=== PATIENT | male | born 1935 | race Caucasian/White ===

== ENCOUNTER → 2018-04-19 | Day surgery (SDC) | payer MEDICARE, BC ==
[2018-04-14 14:07] VITALS: BMI 24.4
[~2018-04-19] MED LIST: ALPRAZolam 0.25 MG TAB PO PRN; ALPRAZolam 0.5 MG TAB PO PRN; ASPIRIN 325 MG TAB PO STA; ATORVASTATIN 80 MG TAB PO STA; HEPARIN SODIUM 1,000 UN/ML (10ML VL) IV ONE; HEPARIN SODIUM 1,000 UN/ML (10ML VL) ONE; IOPAMIDOL-370 100ML BTL INJ ONE; LIDOCAINE 1% INJ 10MG/ML (20 ML MDV) ONE; LIDOCAINE 1% INJ 10MG/ML (20 ML MDV) SQ ONE; MIDAZOLAM 2 MG/2 ML VIAL IVP ONE; NITROGLYCERIN SL TABS 0.4 MG TAB SUBLINGUAL PRN; SODIUM CHLORIDE 0.9% 1,000 ML IV SCH; SODIUM CHLORIDE 0.9% 1,000 ML in EMPTY BAG 1 BAG IV ONE; VERAPAMIL 2.5 MG/ML 2 ML AMP ONE; VERAPAMIL SYRINGE (5 MG/10 ML) INTRAARTER ONE
[2018-04-19 09:30] VITALS: RESP 18; TEMP 97.9
[2018-04-19 09:55] LABS: Anion Gap 12 mmol/L; Blood Urea Nitrogen 12 mg/dL (9-20); Calcium 9.6 mg/dL (8.4-10.2); Carbon Dioxide 23 mmol/L (22-30); Chloride 98 mmol/L (98-107); Glucose 109 mg/dL (74-99); Potassium 4.3 mmol/L (3.5-5.1); Sodium 133 mmol/L (137-145)
[2018-04-19 10:14] LABS: HCT 43.1 % (39.0-53.0); HGB 14.7 gm/dL (13.0-17.5); MCHC 34.2 g/dL (31.0-37.0); MCV 96.5 fL (80.0-100.0); Mean Platelet Volume 6.2; Platelet Count 187 k/uL (150-450); RBC 4.47 m/uL (4.30-5.90); RDW 13.7 % (11.5-15.5); WBC 5.6 k/uL (3.8-10.6)
[2018-04-19] MEDS: VERAPAMIL SYRINGE (5 MG/10 ML) INTRAARTER ONE ×2 (10:39→10:54)
[2018-04-19 11:45] LABS: Lymphocytes # (M) 0.78 k/uL (1.0-4.8); Monocytes # (M) 0.45 k/uL (0-1.0); Neutrophils # (M) 4.37 k/uL (1.3-7.7); Neutrophils % (M) 78 %; Nucleated Red Blood Cells 0 /100 WBC (0-0); Total Cells Counted 100
--- NOTE | 2018-04-19 11:56 | AN ---
ANGIOGRAPHY REPORT DATE OF SERVICE: 04/19/2018. PROCEDURE: Coronary angiography. PERFORMED BY: Dr. Carolina Crawley Moderate conscious sedation time was 27 minutes. Patient was administered Versed and oxygen saturation, hemodynamics and EKG were monitored closely. CLINICAL INFORMATION: Mr. Golden Bingham is an 82-year-old gentleman with a history of palpitations and near syncope. He has had event monitor which revealed runs of nonsustained ventricular tachycardia without associated symptoms. He was initiated on a beta helen and advised to come in for a cardiac catheterization and to rule out obstructive CAD. He also has underlying depression, hypertension, and also hyperlipidemia, all of which are under fairly decent control. PROCEDURE NOTE: Under local anesthesia and strict aseptic precautions, a 6-Maori introducer was placed in the right radial artery. Using a 4.0 right and a 3.5 left Luana catheters, I performed coronary angiography. There was a lot of tortuosity in the brachial system. Because of tortuosity, I had difficulty advancing the pigtail catheter into the LV. There was also some spasm. Therefore, I did not check LV pressures. The sheath was taken out and a TR band applied as per protocol with good hemostasis. Saturation of the fingers of the right hand was 94%. Patient tolerated procedure well without complications. . CORONARY ANGIOGRAPHY FINDINGS: 1. RIGHT CORONARY ARTERY: Right coronary artery is a nondominant vessel, has minor irregularities, gives off two acute marginal branches. No significant disease. Some calcification noted. 2. LEFT MAIN CORONARY ARTERY: Short patent disease-free vessel that bifurcates into LAD and circumflex. There is mild calcification. 3. LEFT ANTERIOR DESCENDING CORONARY ARTERY: Good caliber vessel, gives off a high diagonal branch, has minor irregularities, no significant disease in the diagonal other than 30%-35% irregularities. 4. LAD: LAD is a good caliber vessel, gives off a large septal, runs all the way to the apex and curves over the apex and gives off several septal branches. No significant disease in the entire LAD system. The diagonal is of a good caliber and distribution. 5. LEFT POSTERIOR CIRCUMFLEX CORONARY ARTERY: A dominant vessel, gives off 2 obtuse marginals and then runs distally. The post lateral branch has minor irregularities and no significant disease is noted in the circumflex system. 6. LEFT VENTRICULOGRAM: This was not performed. FINAL IMPRESSION: This patient has a left dominant system, no significant obstructive coronary artery disease. LV pressures were not checked and LV gram was not performed. RECOMMENDATIONS: No intervention from a coronary disease standpoint. I will check an echocardiogram to assess LV function and patient will be discharged today and he will continue beta helen, statins, and I will see him in the office on April 27. Findings were discussed with the patient and his and he will be discharged later on today if he remains stable. MMODL / IJN: [id number] /
[2018-04-19 17:28] VITALS: BP 132/64; PULSE 74
--- NOTE | 2018-04-20 10:14 | ECHOF ---
Referral Reason:ASSESS LV FUNCTION MEASUREMENTS -------- HEIGHT: 182.9 cm WEIGHT: 82.6 kg BP: 137/65 RVIDd: 2.9 cm (< 3.3) IVSd: 2.1 cm (0.6 - 1.1) LVIDd: 3.6 cm (3.9 - 5.3) LVPWd: 2.2 cm (0.6 - 1.1) IVSs: 2.2 cm LVIDs: 2.0 cm LVPWs: 2.5 cm LAESV Index (A-L): 20.88 ml/m Ao Diam: 4.0 cm (2.0 - 3.7) AV Cusp: 2.2 cm (1.5 - 2.6) LA Diam: 3.5 cm (2.7 - 3.8) EPSS: 0.3 cm MV E Rajeev: 0.59 m/s MV DecT: 433 ms MV A Rajeev: 0.87 m/s MV E/A Ratio: 0.69 AR PHT: 955 ms RAP: 5.00 mmHg RVSP: 27.30 mmHg MV EF SLOPE: 18.94 mm/s (70 - 150) MV EXCURSION: 1.67 cm (> 18.000) FINDINGS -------- Undetermined rhythm. This was a technically good study. The left ventricular size is normal. There is severe concentric left ventricular hypertrophy. Ove rall left ventricular systolic function is normal with, an EF between 55 - 60 %.r/o amyloidosis The right ventricle is normal in size and function. Normal LA size by volume 22+/-6 ml/m2. RA appears enlarged. Aortic valve is trileaflet and is mildly thickened. There is mild aortic regurgitation. There is no evidence of aortic stenosis. The mitral valve leaflets are mildly thickened. Mild mitral regurgitation is present. There is mo derate calcification of the posterior mitral valve leaflet with decreased mobility. Mild tricuspid regurgitation present. Right ventricular systolic pressure is normal at < 35 mmHg. There is no evidence of pulmonary hypertension. Moderate pulmonic regurgitation. The aortic root is mildy dilated up to 4.0 cm with normal ascending aortic size. Normal inferior vena cava with normal inspiratory collapse consistent with estimated right atrial pre ssure of 5 mmHg. There is no pericardial effusion. CONCLUSIONS -------- 1. Undetermined rhythm. 2. This was a technically good study. 3. The left ventricular size is normal. 4. There is severe concentric left ventricular hypertrophy. 5. Overall left ventricular systolic function is normal with, an EF between 55 - 60 %. 6. Normal LA size by volume 22+/-6 ml/m2. 7. RA appears enlarged. 8. Aortic valve is trileaflet and is mildly thickened. 9. There is mild aortic regurgitation. 10. The mitral valve leaflets are mildly thickened. 11. Mild mitral regurgitation is present. 12. There is moderate calcification of the posterior mitral valve leaflet with decreased mobility. 13. Mild tricuspid regurgitation present. 14. Right ventricular systolic pressure is normal at < 35 mmHg. 15. There is no evidence of pulmonary hypertension. 16. Moderate pulmonic regurgitation. 17. The aortic root is mildy dilated up to 4.0 cm with normal ascending aortic size. 18. There is no pericardial effusion. CUSTOM SHOE DESIGNER AND MAKER: Willian Patel RDCS
== END | disposition home or self-care (01) ==
LOC: CATHCVL 08:44
PROVIDERS: ATTEND Internal Medicine Interventional Cardiology
DX: I47.2 Ventricular tachycardia (principal); R07.89 Other chest pain; E78.00 Pure hypercholesterolemia, unspecified; I10 Essential (primary) hypertension; E78.5 Hyperlipidemia, unspecified; Z72.0 Tobacco use; Z79.899 Other long term (current) drug therapy; Z79.82 Long term (current) use of aspirin
CPT/HCPCS: 93454; 80048; 85025; C1769; C1894; J2250; J2001; J1644; Q9967; 93306

== ENCOUNTER → 2018-10-31 | Outpatient (CLI) | payer MEDICARE, BC | END | disposition home or self-care (01) | LOC: LABWHC1 13:25 | PROVIDERS: ATTEND Urology | DX: C61 Malignant neoplasm of prostate (principal) | CPT/HCPCS: 36415; 84153 ==

== ENCOUNTER 2022-09-22 12:44 | Inpatient (IN) | payer MEDICARE, BC ==
[2022-09-22] MEDS ORDERED: SODIUM CHLORIDE 0.9% 1,000 ML IV STA (12:56)
--- NOTE | 2022-09-22 13:01 | ED ---
General Adult HPI - General Chief complaint: Weakness Stated complaint: Fatigue Time Seen by Provider: 09/22/22 12:49 Source: patient, EMS, RN notes reviewed Mode of arrival: EMS Limitations: altered mental status - History of Present Illness Initial comments: Patient is a pleasant 87-year-old male presenting to the emergency department by EMS with nonspecific symptoms. Patient is a poor historian and provides very limited history. EMS was concerned for possible arrhythmia. Patient does have chronic back pain however denies being any worse at this time. There was some report patient being confused. Patient admits to feeling dry however states he has been drinking fluids and protein shakes. Patient denies isolated area of weakness. Patient is unclear why he is here. 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 ROS Other: All systems not noted in ROS Statement are negative. Constitutional: Denies: fever Eyes: Denies: eye pain ENT: Denies: ear pain Respiratory: Denies: cough, dyspnea Cardiovascular: Denies: chest pain Endocrine: Reports: fatigue Gastrointestinal: Denies: abdominal pain Genitourinary: Denies: dysuria Musculoskeletal: Reports: as per HPI Skin: Denies: rash Neurological: Reports: as per HPI. Denies: headache Past Medical History Past Medical History: Cancer, Hyperlipidemia Additional Past Medical History / Comment(s): bladder cancer History of Any Multi-Drug Resistant Organisms: None Reported Past Surgical History: Joint Replacement, Orthopedic Surgery, Prostate Surgery Additional Past Surgical History / Comment(s): lt hip replacement, rt shoulder surgery Past Anesthesia/Blood Transfusion Reactions: No Reported Reaction Past Psychological History: No Psychological Hx Reported Past Alcohol Use History: Occasional - Past Family History Mother Family Medical History: No Reported History General Exam Limitations: no limitations General appearance: in no apparent distress Head exam: Present: atraumatic, normocephalic Eye exam: Present: normal appearance, PERRL, EOMI ENT exam: Present: mucous membranes dry Neck exam: Present: normal inspection. Absent: tenderness, meningismus Respiratory exam: Present: normal lung sounds bilaterally Cardiovascular Exam: Present: irregular rhythm, normal heart sounds Expanded Peripheral pulses: 2+: Radial (R), Radial (L) GI/Abdominal exam: Present: soft. Absent: tenderness, pulsatile mass Extremities exam: Present: normal inspection, full ROM. Absent: tenderness Back exam: Present: normal inspection. Absent: tenderness Neurological exam: Present: alert, CN II-XII intact. Absent: motor sensory deficit Expanded Neurological exam: Present: protecting the airway Patient oriented to: Present: person, place. Absent: time Cranial nerves: EOM's Intact: Normal Motor strength exam: RUE: 5, LUE: 5, RLE: 5, LLE: 5 Eye Response: (4) open spontaneously Motor Response: (6) obeys commands Verbal Response: (4) confused conversation Psychiatric exam: Present: normal affect, normal mood Skin exam: Present: normal color Course Vital Signs 09/22/22 12:46 Temperature 98.9 F Pulse Rate 93 Respiratory 18 Rate Blood Pressure 130/76 O2 Sat by Pulse 97 Oximetry - Reevaluation(s) Reevaluation #1: 09/22/22 13:00 EKG #2 was also interpreted by myself shows atrial fibrillation with rate of 92. Left axis. Inferior Q wave. Septal Q waves. Right bundle branch block. Nonspecific ST-T. 09/22/22 13:08 Daughter present and helps provide further history. No history of atrial fibrillation. Patient has been having some right shoulder pain, not back pain. In addition patient has not been eating and drinking well. Patient has had some increased confusion for the past several weeks, not past few days. Patient did have a seizure a week ago and was at [facility] with low magnesium and dehydration as well. EKG Findings - EKG Results: EKG: interpreted by MACHOD ((X. Inferior Q waves. Right bundle branch block. Septal Q waves.), sinus rhythm, normal ST/T Medical Decision Making - Medical Decision Making Was pt. sent in by a medical professional or institution (, PA, SIDE PIECE COVERER, urgent care, hospital, or longterm...) When possible be specific @ -[No] Did you speak to anyone other than the patient for history (EMS, parent, family, police, friend...)? What history was obtained from this source @ -Daughter later arrives and helps provide history as patient is a poor historian. She states no history of atrial fibrillation. She also adds that patient was at [facility] a week ago with new onset seizure and dehydration and hypomagnesemia Did you review nursing and triage notes (agree or disagree)? Why? @ -[I reviewed and agree with nursing and triage notes] Were old charts reviewed (outside hosp., previous admission, EMS record, old EKG, old radiological studies, urgent care reports/EKG's, longterm records)? Report findings @ -[No old charts were reviewed] Differential Diagnosis (chest pain, altered mental status, abdominal pain women, abdominal pain men, vaginal bleeding, weakness, fever, dyspnea, syncope, headache, dizziness, GI bleed, back pain, seizure, CVA, palpatations, mental health)? @ -Differential Weakness: Hypoglycemia, shock, sepsis, hyponatremia, anemia, infection, CA, ETOH, adverse medicine reaction, overdose, stroke, this is not meant to be an all-inclusive list. EKG interpreted by me (3pts min.). @ -[As above] X-rays interpreted by me (1pt min.). @ -Chest x-ray shoulder x-ray revealed no acute abnormality CT interpreted by me (1pt min.). @ -Report reviewed U/S interpreted by me (1pt. min.). @ -[None done] What testing was considered but not performed or refused? (CT, X-rays, U/S, labs)? Why? @ -[None] What meds were considered but not given or refused? Why? @ -[None] Did you discuss the management of the patient with other professionals (professionals i.e. , PA, SIDE PIECE COVERER, lab, RT, psych nurse, social media content manager, backup administrative coordinator, teacher, corrections officer, comp field case manager)? Give summary @ -His was discussed with Dr. Stevens, who will admit For hospital call. Was smoking cessation discussed for >3mins.? @ -[No] Was critical care preformed (if so, how long)? @ -[No] Were there social determinants of health that impacted care today? How? (Homelessness, low income, unemployed, alcoholism, drug addiction, transportation, low edu. Level, literacy, decrease access to med. care, penitentiary, rehab)? @ -[No] Was there de-escalation of care discussed even if they declined (Discuss DNR or withdrawal of care, Hospice)? DNR status @ -[No] What co-morbidities impacted this encounter? (DM, HTN, Smoking, COPD, CAD, Cancer, CVA, ARF, Chemo, Hep., AIDS, mental health diagnosis, sleep apnea, morbid obesity)? @ -[None] Was patient admitted / discharged? Hospital course, mention meds given and route, prescriptions, significant lab abnormalities, going to OR and other pertinent info. @ -Patient reevaluated and resting comfortably in bed. Patient and family updated. Patient will need admitted with further cardiac evaluation. Patient will also need social work for possible placement versus home care Undiagnosed new problem with uncertain prognosis? @ -[No] Drug Therapy requiring intensive monitoring for toxicity (Heparin, Nitro, Insulin, Cardizem)? @ -[No] Were any procedures done? @ -[No] Diagnosis/symptom? @ -New-onset A. fib, dehydration Acute, or Chronic, or Acute on Chronic? @ -Acute, acute Uncomplicated (without systemic symptoms) or Complicated (systemic symptoms)? @ -[default] Side effects of treatment? @ -[No] Exacerbation, Progression, or Severe Exacerbation? @ -[No] Poses a threat to life or bodily function? How? (Chest pain, USA, CA, pneumonia, PE, COPD, DKA, ARF, appy, cholecystitis, CVA, Diverticulitis, Homicidal, Suicidal, threat to staff... and all critical care pts) @ -[No] - Lab Data Result diagrams: 09/22/22 13:03 09/22/22 14:20 Lab Results 09/22/22 09/22/22 09/22/22 Range/Units 13:03 14:20 14:20 WBC 11.3 H (3.8-10.6) k/uL RBC 4.32 (4.30-5.90) m/uL Hgb 13.8 (13.0-17.5) gm/dL Hct 41.1 (39.0-53.0) % MCV 95.2 (80.0-100.0) fL MCH 31.8 (25.0-35.0) pg MCHC 33.4 (31.0-37.0) g/dL RDW 14.0 (11.5-15.5) % Plt Count 319 (150-450) k/uL MPV 7.5 Neutrophils % 83 % Lymphocytes % 8 % Monocytes % 6 % Eosinophils % 1 % Basophils % 0 % Neutrophils # 9.4 H (1.3-7.7) k/uL Lymphocytes # 0.9 L (1.0-4.8) k/uL Monocytes # 0.7 (0-1.0) k/uL Eosinophils # 0.1 (0-0.7) k/uL Basophils # 0.0 (0-0.2) k/uL PT 11.4 (9.0-12.0) sec INR 1.1 (<1.2) APTT 25.5 (22.0-30.0) sec Sodium (137-145) mmol/L Potassium (3.5-5.1) mmol/L Chloride (98-107) mmol/L Carbon Dioxide (22-30) mmol/L Anion Gap mmol/L BUN (9-20) mg/dL Creatinine (0.66-1.25) mg/dL Est GFR (CKD-EPI)AfAm (>60 ml/min/1.73 sqM) Est GFR (CKD-EPI)NonAf (>60 ml/min/1.73 sqM) Glucose (74-99) mg/dL Plasma Lactic Acid Faizan 2.2 H* (0.7-2.0) mmol/L Calcium (8.4-10.2) mg/dL Phosphorus (2.5-4.5) mg/dL Magnesium (1.6-2.3) mg/dL Total Bilirubin (0.2-1.3) mg/dL AST (17-59) U/L ALT (4-49) U/L Alkaline Phosphatase (38-126) U/L Troponin I (0.000-0.034) ng/mL Total Protein (6.3-8.2) g/dL Albumin (3.5-5.0) g/dL TSH (0.465-4.680) mIU/L Free T4 (0.78-2.19) ng/dL Free T3 pg/mL (2.8-5.3) pg/ml 09/22/22 09/22/22 Range/Units 14:20 14:20 WBC (3.8-10.6) k/uL RBC (4.30-5.90) m/uL Hgb (13.0-17.5) gm/dL Hct (39.0-53.0) % MCV (80.0-100.0) fL MCH (25.0-35.0) pg MCHC (31.0-37.0) g/dL RDW (11.5-15.5) % Plt Count (150-450) k/uL MPV Neutrophils % % Lymphocytes % % Monocytes % % Eosinophils % % Basophils % % Neutrophils # (1.3-7.7) k/uL Lymphocytes # (1.0-4.8) k/uL Monocytes # (0-1.0) k/uL Eosinophils # (0-0.7) k/uL Basophils # (0-0.2) k/uL PT (9.0-12.0) sec INR (<1.2) APTT (22.0-30.0) sec Sodium 133 L (137-145) mmol/L Potassium 4.1 (3.5-5.1) mmol/L Chloride 98 (98-107) mmol/L Carbon Dioxide 22 (22-30) mmol/L Anion Gap 13 mmol/L BUN 23 H (9-20) mg/dL Creatinine 0.67 (0.66-1.25) mg/dL Est GFR (CKD-EPI)AfAm >90 (>60 ml/min/1.73 sqM) Est GFR (CKD-EPI)NonAf 88 (>60 ml/min/1.73 sqM) Glucose 118 H (74-99) mg/dL Plasma Lactic Acid Faizan (0.7-2.0) mmol/L Calcium 9.8 (8.4-10.2) mg/dL Phosphorus 3.8 (2.5-4.5) mg/dL Magnesium 2.1 (1.6-2.3) mg/dL Total Bilirubin 0.8 (0.2-1.3) mg/dL AST 27 (17-59) U/L ALT 15 (4-49) U/L Alkaline Phosphatase 110 (38-126) U/L Troponin I 0.061 H* (0.000-0.034) ng/mL Total Protein 7.1 (6.3-8.2) g/dL Albumin 3.7 (3.5-5.0) g/dL TSH 3.070 (0.465-4.680) mIU/L Free T4 2.37 H (0.78-2.19) ng/dL Free T3 pg/mL 4.1 (2.8-5.3) pg/ml Disposition Clinical Impression: New onset a-fib, Dehydration Disposition: ADMITTED IP TO THIS HOSP Is patient prescribed a controlled substance at d/c from ED?: No Referrals: None,Stated [Primary Care Provider] - 1-2 days Time of Disposition: 16:06
[2022-09-22 13:12] LABS: Basophils % (A) 0 %; Eosinophils # (A) 0.1 k/uL (0-0.7); Eosinophils % (A) 1 %; HCT 41.1 % (39.0-53.0); HGB 13.8 gm/dL (13.0-17.5); Lymphocytes # (A) 0.9 k/uL (1.0-4.8); Lymphocytes % (A) 8 %; MCH 31.8 pg (25.0-35.0); MCHC 33.4 g/dL (31.0-37.0); MCV 95.2 fL (80.0-100.0); Mean Platelet Volume 7.5; Monocytes # (A) 0.7 k/uL (0-1.0); Monocytes % (A) 6 %; Neutrophils # (A) 9.4 k/uL (1.3-7.7); Neutrophils % (A) 83 %; Platelet Count 319 k/uL (150-450); RBC 4.32 m/uL (4.30-5.90); WBC 11.3 k/uL (3.8-10.6)
--- NOTE | 2022-09-22 13:40 | CT ---
EXAMINATION TYPE: CT brain wo con CT DLP: 1202.4 mGycm, Automated exposure control for dose reduction was used. DATE OF EXAM: 09/22/2022 1:28 PM COMPARISON: None. CLINICAL INDICATION:Male, 87 years old with history of ams, AMS, Dementia, Seizure? TECHNIQUE: Brain: Axial CT images of the brain were obtained with coronal and sagittal reformats created and rev iewed. Contrast used: None. Oral contrast used: None. FINDINGS: Brain: Extra-axial spaces: No abnormal extra-axial fluid collections. Ventricular system: Dilatation in proportion to cerebral atrophy. Cerebral parenchyma: Cerebral atrophy. No acute intraparenchymal hemorrhage or mass effect. The khalil -white junction is well differentiated. Scattered hypoattenuating areas are seen within the white mat ter. Cerebellum: Cerebellar atrophy Mass effect: No evidence of midline shift. Intracranial vasculature: Atherosclerotic calcifications of the intracranial vessels. Soft tissues: Normal. Calvarium/osseous structures: No depressed skull fracture. Paranasal sinuses and mastoid air cells: Mild scattered paranasal sinus disease. Visualized orbits: Bilateral aphakia IMPRESSION: 1. No acute intracranial process. 2. Nonspecific white matter changes, likely secondary to chronic small vessel ischemic disease.
--- NOTE | 2022-09-22 14:27 | XR ---
EXAMINATION TYPE: XR chest 2V DATE OF EXAM: 09/22/2022 1:40 PM COMPARISON: none TECHNIQUE: XR chest 2V Frontal and lateral views of the chest. CLINICAL INDICATION:Male, 87 years old with history of Weakness; FINDINGS: Lungs/Pleura: There is flattening of the diaphragm with increased lucency of the lungs. No evidence o f pneumothorax, pleural effusion or focal consolidation. Pulmonary vascularity: Pulmonary vascular congestion. Heart/mediastinum: Cardiomediastinal silhouette is prominent in size. Musculoskeletal: No acute osseous pathology. Post rotator cuff repair changes to the right shoulder. Other findings: None IMPRESSION: 1. Mild pulmonary vascular congestion suggested correlate with serum BNP. 2. COPD changes.
--- NOTE | 2022-09-22 14:28 | XR ---
EXAMINATION TYPE: XR shoulder complete RT DATE OF EXAM: 09/22/2022 1:40 PM INDICATION: Patient age:Male; 87 years old; Reason for study: pain; COMPARISON: None TECHNIQUE: The right shoulder was examined in AP, internally rotated and scapular Y projections. FINDINGS: Post rotator cuff repair changes with anchors in place. There is degeneration changes with osteophyte formation of the glenoid humerus acromion and distal clavicle. No evidence of acute osseous pathology, joint dislocation, or soft tissue swelling. There are interst itial lung opacities suggested. IMPRESSION: No acute osseous pathology. Post rotator cuff repair changes with moderate to severe degeneration of the acromioclavicular and gl enohumeral joint.
[2022-09-22 14:45] LABS: INR 1.1 (<1.2); Partial Thromboplastin Time 25.5 sec (22.0-30.0); Prothrombin Time 11.4 sec (9.0-12.0)
[2022-09-22 14:46] LABS: ALT 15 U/L (4-49); AST 27 U/L (17-59); African American GFR (CKD) >90 (>60 ml/min/1.73 sqM); Albumin 3.7 g/dL (3.5-5.0); Alkaline Phosphatase 110 U/L (38-126); Anion Gap 13 mmol/L; Blood Urea Nitrogen 23 mg/dL (9-20); Calcium 9.8 mg/dL (8.4-10.2); Carbon Dioxide 22 mmol/L (22-30); Chloride 98 mmol/L (98-107); Glucose 118 mg/dL (74-99); Magnesium 2.1 mg/dL (1.6-2.3); Non-African American GFR(CKD) 88 (>60 ml/min/1.73 sqM); Phosphorus 3.8 mg/dL (2.5-4.5); Potassium 4.1 mmol/L (3.5-5.1); Sodium 133 mmol/L (137-145); Total Bilirubin 0.8 mg/dL (0.2-1.3); Total Protein 7.1 g/dL (6.3-8.2)
[2022-09-22 15:01] LABS: T4, Free (Free Thyroxine) 2.37 ng/dL (0.78-2.19)
[2022-09-22] MEDS ORDERED: NALOXONE 0.4 MG/ML 1 ML VIAL IV PRN (16:07)
[2022-09-22] MEDS: SODIUM CHLORIDE 0.9% 1,000 ML IV SCH (16:35)
--- NOTE | 2022-09-22 18:47 | P.HPIM ---
History of Present Illness H&P Date: 09/22/22 Patient is a 87-year-old male with PMH of hypertension, depression, dementia, cardiac amyloidosis, hypothyroidism presents to the ED for seizure-like activity. History is obtained from the daughter at bedside was not present during this episode. Apparently, patient was using the washroom with the aid of his workers' compensation magistrate when he started staring off into space and started shaking his extremities. Unclear whether he had bladder or bowel incontinence. Apparently, he had a similar episode one week ago and was taken to [facility]. He was treated for dehydration and hypomagnesemia. Family was told he did not have a seizure at that time and he was discharged home. Daughter reports that patient has deteriorated over the past 2 months. She estimates that he has lost 10 pounds in the last 6 weeks. Patient has very poor oral intake. With what little intake he does have, usually results in coughing. Daughter also reports that he also seems to have pain in his right shoulder. Family has 24-hour caregiver for their mother and father. He has not been able to ambulate over the past 1-2 weeks. In the ED, he was noted to be tachycardic with heart rate in the 90s. Vital signs were otherwise stable. CBC showed leukocytosis of 11.3. Coagulation panel within normal limits. CMP showed sodium of 133, BUN of 23, glucose 118. Troponin was 0.061. Lactic acid of 2.2. TSH within normal limits and free T4 elevated at 2.37. EKG showed atrial fibrillation with PVCs, ventricular rate of 92. Brain CT negative for acute finding. Chest x-ray showing mild pulmonary vascular congestion. 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 Patient is admitted for failure to thrive. Pertinent positives and negatives as discussed in HPI, a complete review of systems was performed and all other systems are negative. General: non toxic, no distress, appears at stated age, cachectic Derm: warm, dry Head: atraumatic, normocephalic, symmetric Eyes: EOMI, no lid lag, anicteric sclera Mouth: no lip lesion, mucus membranes moist Cardiovascular: Irregular, no murmur Lungs: CTA bilateral, no rhonchi, no rales , no accessory muscle use Abdominal: soft, nontender to palpation, no guarding, no appreciable organomegaly Ext: no gross muscle atrophy, no edema, no contractures Neuro: no focal neuro deficits Psych: Alert, oriented x 0 Troponin elevation Hyponatremia and elevated BUN likely related to dehydration Lactic acidosis likely related to the above. New-onset atrial fibrillation Failure to thrive Chronic conditions: Hypertension, depression, dementia, cardiac amyloidosis, hypothyroidism Based on my assessment of this patient, this patient meets a high complexity level of care. Patient has an acute diagnosis of failure to thrive that poses a threat to life or bodily function. He has lost about 10 pounds in the last week as per donavon perkins. Noted to have elevated troponin of 0.061 and lactic acid of 2.2. Family notes very poor oral intake. Questionable episode of seizure. Potassium and magnesium within normal limits. EEG will be ordered. Speech therapy will be consulted for swallow evaluation. PT and OT will be consulted to work with this patient. Troponins will be trended and ACS will be ruled out. Echocardiogram will be ordered. Telemetry monitoring ordered. Cardiology will be consulted. Continue normal saline at 75 mL per hour. Repeat lactic acid until negative. Hypertension: Metoprolol 12.5 mg PO QD. Depression: Wellbutrin 150 mg PO QD. Dementia: Memantine 5 mg PO BID. Cardiac amyloidosis: Follows up with Dr. Crawley. Hypothyroidism: Synthroid 25 mcg PO QD. CODE STATUS as discussed with the daughter. She states that she needs to speak with her sister who is the POA. Also discussed the possible need for PEG if patient does not improve. Lovenox for DVT Prophylaxis. Daughter is POA. FULL CODE. I have reviewed the following human resources consultant notes: I have reviewed the results of the following tests: CBC showed leukocytosis of 11.3. Coagulation panel within normal limits. CMP showed sodium of 133, BUN of 23, glucose 118. Troponin was 0.061. Lactic acid of 2.2. TSH within normal limits and free T4 elevated at 2.37. Brain CT negative for acute finding. 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 I have ordered the following tests: Troponin. Echocardiogram. EEG. I have discussed the care of this patient with the following independent historian: Discussed with the Daughter at bedside. I have independently interpreted the following test below: EKG showed atrial fibrillation with PVCs, ventricular rate of 92. Chest x-ray showing mild pulmonary vascular congestion. I have discussed the management of this patient with the following physician: Case discussed with the ED physician with decision made to admit the patient for dehydration and elevated troponin with failure to thrive. Past Medical History Past Medical History: Cancer, Hyperlipidemia Additional Past Medical History / Comment(s): bladder cancer History of Any Multi-Drug Resistant Organisms: None Reported Past Surgical History: Joint Replacement, Orthopedic Surgery, Prostate Surgery Additional Past Surgical History / Comment(s): lt hip replacement, rt shoulder surgery Past Anesthesia/Blood Transfusion Reactions: No Reported Reaction Past Psychological History: No Psychological Hx Reported Past Alcohol Use History: Occasional - Past Family History Mother Family Medical History: No Reported History Medications and Allergies Home Medications Medication Instructions Recorded Confirmed Type Aspirin [Adult Low Dose Aspirin EC] 81 mg PO DAILY 04/14/18 09/22/22 History Omeprazole 20 mg PO AC-BRKFST 04/14/18 09/22/22 History Sertraline HCl [Zoloft] 50 mg PO DAILY 04/14/18 09/22/22 History buPROPion HCL [Wellbutrin XL] 150 mg PO DAILY 04/14/18 09/22/22 History Levothyroxine Sodium [Synthroid] 25 mcg PO DAILY 09/22/22 09/22/22 History Memantine HCl [Memantine HCl ER] 14 mg PO DAILY 09/22/22 09/22/22 History Metoprolol Tartrate [Lopressor] 12.5 mg PO DAILY 09/22/22 09/22/22 History Polymyxin B-Trimeth Sulf Ophth 1 drop BOTH EYES DIRECTED 09/22/22 09/22/22 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 Meglumine [Vyndaqel] 80 mg PO DAILY 09/22/22 09/22/22 History Allergies Allergy/AdvReac Type Severity Reaction Status Date / Time No Known Allergies Allergy Verified 09/22/22 14:16 Physical Exam Vitals: Vital Signs Temp Pulse Resp BP Pulse Ox 09/22/22 12:46 98.9 F 93 18 130/76 97 Intake and Output 09/22/22 09/22/22 09/22/22 06:59 14:59 22:59 Other: Weight 81.647 kg Results CBC & Chem 7: 09/22/22 13:03 09/22/22 14:20 Labs: Abnormal Lab Results - Last 24 Hours (Table) 09/22/22 09/22/22 09/22/22 Range/Units 13:03 14:20 14:20 WBC 11.3 H (3.8-10.6) k/uL Neutrophils # 9.4 H (1.3-7.7) k/uL Lymphocytes # 0.9 L (1.0-4.8) k/uL Sodium (137-145) mmol/L BUN (9-20) mg/dL Glucose (74-99) mg/dL Plasma Lactic Acid Faizan 2.2 H* (0.7-2.0) mmol/L Troponin I 0.061 H* (0.000-0.034) ng/mL Free T4 (0.78-2.19) ng/dL 09/22/22 09/22/22 Range/Units 14:20 17:36 WBC (3.8-10.6) k/uL Neutrophils # (1.3-7.7) k/uL Lymphocytes # (1.0-4.8) k/uL Sodium 133 L (137-145) mmol/L BUN 23 H (9-20) mg/dL Glucose 118 H (74-99) mg/dL Plasma Lactic Acid Faizan (0.7-2.0) mmol/L Troponin I 0.066 H* (0.000-0.034) ng/mL Free T4 2.37 H (0.78-2.19) ng/dL
[2022-09-22 19:06] LABS: Appearance,Urine Clear (Clear); Bilirubin,Urine Negative (Negative); Blood,Urine Negative (Negative); Color,Urine Yellow; Glucose,Urine (UA) Negative (Negative); Ketones,Urine Trace (Negative); Leukocyte Esterase,Urine Negative (Negative); Nitrite,Urine Negative (Negative); PH, Urine 5.5 (5.0-8.0); Protein,Urine Trace (Negative); Specific Gravity,Urine 1.024 (1.001-1.035)
[2022-09-22] MEDS ORDERED: ACETAMINOPHEN TAB 500 MG TAB PO STA (20:58)
[2022-09-23] MEDS: SODIUM CHLORIDE 0.9% 1,000 ML IV SCH ×2 (06:38→19:55)
[2022-09-23 07:58] LABS: Basophils % (A) 0 %; Eosinophils # (A) 0.1 k/uL (0-0.7); Eosinophils % (A) 1 %; HCT 35.5 % (39.0-53.0); HGB 11.8 gm/dL (13.0-17.5); Lymphocytes # (A) 1.4 k/uL (1.0-4.8); Lymphocytes % (A) 13 %; MCH 31.3 pg (25.0-35.0); MCHC 33.4 g/dL (31.0-37.0); MCV 93.9 fL (80.0-100.0); Mean Platelet Volume 7.5; Monocytes # (A) 0.7 k/uL (0-1.0); Monocytes % (A) 6 %; Neutrophils # (A) 8.2 k/uL (1.3-7.7); Neutrophils % (A) 77 %; Platelet Count 299 k/uL (150-450); RBC 3.78 m/uL (4.30-5.90); RDW 14.2 % (11.5-15.5); WBC 10.6 k/uL (3.8-10.6)
[2022-09-23 08:05] LABS: ALT 13 U/L (4-49); AST 22 U/L (17-59); African American GFR (CKD) >90 (>60 ml/min/1.73 sqM); Albumin 3.1 g/dL (3.5-5.0); Alkaline Phosphatase 89 U/L (38-126); Anion Gap 11 mmol/L; Blood Urea Nitrogen 25 mg/dL (9-20); Calcium 9.1 mg/dL (8.4-10.2); Carbon Dioxide 22 mmol/L (22-30); Chloride 101 mmol/L (98-107); Glucose 81 mg/dL (74-99); Non-African American GFR(CKD) 89 (>60 ml/min/1.73 sqM); Potassium 3.9 mmol/L (3.5-5.1); Sodium 134 mmol/L (137-145); Total Bilirubin 0.7 mg/dL (0.2-1.3)
--- NOTE | 2022-09-23 11:58 | CA ---
Transthoracic Echo Report Name: Golden Bingham Age: 87 Gender: M : 1935 Exam Date: 09/23/2022 09:55 Exam Location: [place] [facility] Ht (in): 72 Wt (lb): 180 Ordering Physician: Jaime Perrin MD Attending/Referring Phys: Vp Training Abel Jolley Procedure CPT: Indications: Cardiac amyloidosis Cardiac Hx: Technical Quality: Good Contrast 1: Total Dose (mL): Contrast 2: Total Dose (mL): MEASUREMENTS (Male / Female) Normal Values 2D ECHO LV Diastolic Diameter PLAX 2.7 cm 4.2 - 5.9 / 3.9 - 5.3 cm LV Systolic Diameter PLAX 2.0 cm IVS Diastolic Thickness 2.3 cm 0.6 - 1.0 / 0.6 - 0.9 cm LVPW Diastolic Thickness 2.5 cm 0.6 - 1.0 / 0.6 - 0.9 cm LV Relative Wall Thickness 1.8 RV Internal Dim ED PLAX 2.8 cm LVOT Diameter 2.5 cm Aortic Root Diameter 3.5 cm LA Systolic Diameter LX 3.0 cm 3.0 - 4.0 / 2.7 - 3.8 cm LV Diastolic Volume MOD BP 34.7 cm??? 67 - 155 / 56 - 104 cm??? LV Systolic Volume MOD BP 9.2 cm??? 22 - 58 / 19 - 49 cm??? LV Ejection Fraction MOD BP 73.5 % >= 55 % LV Diastolic Volume MOD 4C 43.5 cm??? LV Systolic Volume MOD 4C 8.2 cm??? LV Ejection Fraction MOD 4C 81.1 % LV Diastolic Length 4C 7.1 cm LV Systolic Length 4C 5.8 cm LV Diastolic Volume MOD 2C 29.9 cm??? LV Systolic Volume MOD 2C 10.6 cm??? LV Ejection Fraction MOD 2C 64.7 % LV Diastolic Length 2C 6.7 cm LV Systolic Length 2C 5.5 cm LA Volume 51.5 cm??? 18 - 58 / 22 - 52 cm??? DOPPLER AV Peak Velocity 139.8 cm/s AV Peak Gradient 7.8 mmHg AI Peak Velocity 363.6 cm/s AI Peak Gradient 52.9 mmHg AI Pressure Half Time 985.7 ms MV Peak Velocity 152.2 cm/s MV Peak Gradient 9.3 mmHg MV Mean Velocity 82.8 cm/s MV Mean Gradient 3.3 mmHg MV Velocity Time Integral 40.1 cm Mitral E Point Velocity 62.7 cm/s Mitral A Point Velocity 103.6 cm/s Mitral E to A Ratio 0.6 MV Deceleration Time 265.7 ms TR Peak Velocity 177.8 cm/s TR Peak Gradient 12.6 mmHg PV Peak Velocity 210.5 cm/s PV Peak Gradient 17.7 mmHg FINDINGS Left Ventricle Severe concentric left ventricular hypertrophy. Right Ventricle Normal right ventricular size. Right Atrium Normal right atrial size. Left Atrium Normal left atrial size. Mitral Valve Mitral Thickening. Trace MR. Aortic Valve Mild to Moderate AV sclerosis/calcification. Moderate AI. Tricuspid Valve Mild Thickening of the Tricuspid valve. Trace TR. Pulmonic Valve Pulmonic valve not well visualized. [id number] pulmonic regurgitation. Pericardium Normal pericardium. Aorta Grossly normal Ao root power. CONCLUSIONS Severe concentric LVH with shiny speckled appearance of myocardium suggestive of cardiac emboli doses. Mild mitral and aortic insufficiency. Right-sided pressures are not well quantified no pericardial effusion Previewed by: Dr. Benja Crawley MD (Electronically Signed) Final Date: 23 Sep 2022 11:57
[2022-09-23 12:24] VITALS: BMI 24.4
[2022-09-23] MEDS: LEVOTHYROXINE 25 MCG TAB PO SCH (13:32)
[2022-09-23] MEDS: PANTOPRAZOLE 40 MG TABLET PO SCH (13:32)
[2022-09-23] MEDS: ASPIRIN 81 MG PO SCH (13:32)
[2022-09-23] MEDS: buPROPion XL 150 MG TAB.ER.24H PO SCH (13:33)
[2022-09-23] MEDS: MEMANTINE 5 MG TAB PO SCH ×2 (13:33→20:00)
[2022-09-23] MEDS: SERTRALINE 50 MG TAB PO SCH (13:33)
--- NOTE | 2022-09-23 17:07 | P.PN ---
Subjective Progress Note Date: 09/23/22 Patient is a 87-year-old male with PMH of hypertension, depression, dementia, cardiac amyloidosis, hypothyroidism presents to the ED for seizure-like activity. History is obtained from the daughter at bedside was not present during this episode. Apparently, patient was using the washroom with the aid of his publications designer when he started staring off into space and started shaking his extremities. Unclear whether he had bladder or bowel incontinence. Apparently, he had a similar episode one week ago and was taken to [facility]. He was treated for dehydration and hypomagnesemia. Family was told he did not have a seizure at that time and he was discharged home. Daughter reports that patient has deteriorated over the past 2 months. She estimates that he has lost 10 pounds in the last 6 weeks. Patient has very poor oral intake. With what little intake he does have, usually results in coughing. Daughter also reports that he also seems to have pain in his right shoulder. Family has 24-hour caregiver for their mother and father. He has not been able to ambulate over the past 1-2 weeks. In the ED, he was noted to be tachycardic with heart rate in the 90s. Vital signs were otherwise stable. CBC showed leukocytosis of 11.3. Coagulation panel within normal limits. CMP showed sodium of 133, BUN of 23, glucose 118. Troponin was 0.061. Lactic acid of 2.2. TSH within normal limits and free T4 elevated at 2.37. Further review of EKG showed sinus rhythm with frequent ectopic beats. Brain CT negative for acute finding. Chest x-ray showing mild pulmonary vascular congestion. 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 Patient is admitted for failure to thrive. 09/23 Patient was seen and examined. No changes in his clinical condition. Echocardiogram shows severe concentric LVH with speckled appearance. No family at bedside. CBC shows hemoglobin of 11.8. BMP shows sodium 134, BUN of 25, creatinine 0.64 with albumin of 3.1. UA negative for nitrite of LE. Per nursing, family interested in Hospice informational visit. General: non toxic, no distress, appears at stated age, cachectic Derm: warm, dry Head: atraumatic, normocephalic, symmetric Eyes: EOMI, no lid lag, anicteric sclera Mouth: no lip lesion, mucus membranes moist Cardiovascular: Irregular, no murmur Lungs: CTA bilateral, no rhonchi, no rales , no accessory muscle use Ext: no gross muscle atrophy, no edema, no contractures Neuro: no focal neuro deficits Psych: Alert, oriented x 0 Troponin elevation Hyponatremia and elevated BUN likely related to dehydration Failure to thrive Resolved: Lactic acidosis Chronic conditions: Severe diastolic CHF, Hypertension, depression, dementia, cardiac amyloidosis, hypothyroidism Based on my assessment of this patient, this patient meets a moderate complexity level of care. Patient has an acute diagnosis of failure to thrive that poses a threat to life or bodily function. He has lost about 10 pounds in the last week as per daughter. Noted to have elevated troponin of 0.061 and lactic acid of 2.2. Family notes very poor oral intake. Questionable episode of seizure. Potassium and magnesium within normal limits. EEG is pending. Speech therapy recommends NDD2 with 1:1 supervision. PT and OT on board. Troponins are flat. Likely troponin leak. Patient has severe diasolic CHF. Telemetry monitoring ordered. Continue normal saline at 75 mL per hour. Hypertension: Metoprolol 12.5 mg PO QD. Depression: Wellbutrin 150 mg PO QD. Dementia: Memantine 5 mg PO BID. Cardiac amyloidosis: Follows up with Dr. Crawley. Hypothyroidism: Synthroid 25 mcg PO QD. Lovenox for DVT Prophylaxis. Daughter is POA. FULL CODE. I have reviewed the following database consultant notes: I have reviewed the results of the following tests: Echocardiogram shows severe concentric LVH with speckled appearance. CBC shows hemoglobin of 11.8. BMP shows sodium 134, BUN of 25, creatinine 0.64 with albumin of 3.1. UA negative for nitrite of LE. I have ordered the following tests: EEG. I have discussed the care of this patient with the following independent historian: Case discussed with the daughter. The other daughter who is the POA will come around 6PM. I have independently interpreted the following test below: I have discussed the management of this patient with the following physician: Objective - Vital Signs Vital signs: Vital Signs Temp 97.7 F 09/23/22 08:37 Pulse 97 09/23/22 08:37 Resp 18 09/23/22 08:37 BP 157/74 09/23/22 08:37 Pulse Ox 96 09/23/22 08:37 FiO2 Intake & Output 09/22/22 09/23/22 09/23/22 18:59 06:59 18:59 Intake Total 600 Balance 600 Weight 81.647 kg 81.647 kg Intake: Intake, IV Titration 600 Amount Sodium Chloride 0.9% 1, 600 000 ml @ 75 mls/hr IV . [id number] [facility] Rx#:[id number] Other: Voiding Method Incontinent Incontinent # Voids 1 # Bowel Movements 1 - Labs CBC & Chem 7: 09/23/22 06:27 09/23/22 06:27 Labs: Abnormal Lab Results - Last 24 Hours (Table) 09/22/22 09/22/22 09/22/22 Range/Units 14:20 14:20 15:57 RBC (4.30-5.90) m/uL Hgb (13.0-17.5) gm/dL Hct (39.0-53.0) % Neutrophils # (1.3-7.7) k/uL Sodium (137-145) mmol/L BUN (9-20) mg/dL Creatinine (0.66-1.25) mg/dL Troponin I 0.061 H* (0.000-0.034) ng/mL Total Protein (6.3-8.2) g/dL Albumin (3.5-5.0) g/dL Free T4 2.37 H (0.78-2.19) ng/dL Urine Protein Trace H (Negative) Urine Ketones Trace H (Negative) 09/22/22 09/22/22 09/23/22 Range/Units 17:36 21:54 06:27 RBC 3.78 L (4.30-5.90) m/uL Hgb 11.8 L (13.0-17.5) gm/dL Hct 35.5 L (39.0-53.0) % Neutrophils # 8.2 H (1.3-7.7) k/uL Sodium (137-145) mmol/L BUN (9-20) mg/dL Creatinine (0.66-1.25) mg/dL Troponin I 0.066 H* 0.088 H* (0.000-0.034) ng/mL Total Protein (6.3-8.2) g/dL Albumin (3.5-5.0) g/dL Free T4 (0.78-2.19) ng/dL Urine Protein (Negative) Urine Ketones (Negative) 09/23/22 Range/Units 06:27 RBC (4.30-5.90) m/uL Hgb (13.0-17.5) gm/dL Hct (39.0-53.0) % Neutrophils # (1.3-7.7) k/uL Sodium 134 L (137-145) mmol/L BUN 25 H (9-20) mg/dL Creatinine 0.64 L (0.66-1.25) mg/dL Troponin I (0.000-0.034) ng/mL Total Protein 6.0 L (6.3-8.2) g/dL Albumin 3.1 L (3.5-5.0) g/dL Free T4 (0.78-2.19) ng/dL Urine Protein (Negative) Urine Ketones (Negative)
[2022-09-23] MEDS: ENOXAPARIN 40 MG/0.4 ML SYRINGE SQ SCH (18:49)
[2022-09-23] MEDS: METOPROLOL TARTRATE 12.5 MG TAB PO SCH (18:49)
--- NOTE | 2022-09-23 19:23 | EEG ---
ELECTROENCEPHALOGRAM REPORT CLINICAL HISTORY: This is an 87-year-old gentleman with history of dementia, who had reported staring episode and shaking of extremities. The video EEG is obtained to evaluate for seizure and epileptiform activity. RELEVANT MEDICATIONS: The patient is on Wellbutrin and Namenda. EEG TYPE: A routine 21-channel EEG is performed with video using the 10/20 electrode placement system. DESCRIPTION: Wakefulness is obtained. During wakefulness state, the background consists of low-to- moderate voltage of 5 to 5.5 hertz activity. There is no physiological stage 2 sleep architecture. There is no focal slowing. Interictal and ictal is none. ACTIVATION PROCEDURE: Photic stimulation did not evoke a posterior driving response. There is no abnormality during the photic stimulation. Hyperventilation is not performed. CLINICAL INTERPRETATION: This is an abnormal routine EEG. The background slowing is suggestive of moderate encephalopathy. Otherwise, there is no focal slowing, epileptiform discharge, or seizure on the EEG. Clinical correlation is recommended. If there is any further concern, recommend a prolonged EEG. DILMA / DREW: [id number] / CESAR
[2022-09-24] MEDS: SODIUM CHLORIDE 0.9% 1,000 ML IV SCH (05:53)
[2022-09-24] MEDS: LEVOTHYROXINE 25 MCG TAB PO SCH (06:30)
[2022-09-24] MEDS: PANTOPRAZOLE 40 MG TABLET PO SCH (06:30)
[2022-09-24 07:42] LABS: HCT 37.2 % (39.0-53.0); HGB 12.1 gm/dL (13.0-17.5); MCH 31.4 pg (25.0-35.0); MCHC 32.6 g/dL (31.0-37.0); MCV 96.4 fL (80.0-100.0); Mean Platelet Volume 6.8; Platelet Count 313 k/uL (150-450); RBC 3.85 m/uL (4.30-5.90); RDW 13.9 % (11.5-15.5); WBC 11.6 k/uL (3.8-10.6)
[2022-09-24 08:01] LABS: African American GFR (CKD) >90 (>60 ml/min/1.73 sqM); Anion Gap 11 mmol/L; Blood Urea Nitrogen 20 mg/dL (9-20); Calcium 9.2 mg/dL (8.4-10.2); Carbon Dioxide 22 mmol/L (22-30); Chloride 101 mmol/L (98-107); Glucose 97 mg/dL (74-99); Non-African American GFR(CKD) >90 (>60 ml/min/1.73 sqM); Potassium 3.7 mmol/L (3.5-5.1); Sodium 134 mmol/L (137-145)
[2022-09-24] MEDS: ENOXAPARIN 40 MG/0.4 ML SYRINGE SQ SCH (09:23)
[2022-09-24] MEDS: MEMANTINE 5 MG TAB PO SCH ×3 (09:24→19:57)
[2022-09-24] MEDS: METOPROLOL TARTRATE 12.5 MG TAB PO SCH (09:24)
[2022-09-24] MEDS: buPROPion XL 150 MG TAB.ER.24H PO SCH (09:24)
[2022-09-24] MEDS: SERTRALINE 50 MG TAB PO SCH (09:24)
[2022-09-24] MEDS: ASPIRIN 81 MG PO SCH (09:24)
[2022-09-24 09:30] VITALS: RESP 16
--- NOTE | 2022-09-24 13:37 | P.PN ---
Progress Note - Text Progress Note Date: 09/23/22 This is a late note entry ACP note The case was discussed with the daughter, who is the POA at bedside on 09/23 around 6PM. Daughter reports that patient has deteriorated since a mechanical fall that led to a rib fracture about 2 months ago. She reports that patient had a seizure like episode 2 weeks ago as witnessed by the school childcare attendant, was evaluated at [facility], given IVF and Mg replacement and discharged home that night. Patient has had very poor oral intake since then. He has also been bed ridden since then. He is admitted at [facility] again for a similar episode. She would prefer that patient be at home. Him and his have 24H caregivers. She is agreeable to home with hospice. Family would like to have Orthopedic surgery evaluate him for a possible cortisone injection in the R shoulder since that seems to be the source of his pain. She is agreeable to make the patient NO CODE. This conversation took 30 minutes.
--- NOTE | 2022-09-24 13:40 | P.PN ---
Subjective Progress Note Date: 09/24/22 Patient is a 87-year-old male with PMH of hypertension, depression, dementia, cardiac amyloidosis, hypothyroidism presents to the ED for seizure-like activity. History is obtained from the daughter at bedside was not present during this episode. Apparently, patient was using the washroom with the aid of his motorcycle maker when he started staring off into space and started shaking his extremities. Unclear whether he had bladder or bowel incontinence. Apparently, he had a similar episode one week ago and was taken to [facility]. He was treated for dehydration and hypomagnesemia. Family was told he did not have a seizure at that time and he was discharged home. Daughter reports that patient has deteriorated over the past 2 months. She estimates that he has lost 10 pounds in the last 6 weeks. Patient has very poor oral intake. With what little intake he does have, usually results in coughing. Daughter also reports that he also seems to have pain in his right shoulder. Family has 24-hour caregiver for their mother and father. He has not been able to ambulate over the past 1-2 weeks. In the ED, he was noted to be tachycardic with heart rate in the 90s. Vital signs were otherwise stable. CBC showed leukocytosis of 11.3. Coagulation panel within normal limits. CMP showed sodium of 133, BUN of 23, glucose 118. Troponin was 0.061. Lactic acid of 2.2. TSH within normal limits and free T4 elevated at 2.37. Further review of EKG showed sinus rhythm with frequent ectopic beats. Brain CT negative for acute finding. Chest x-ray showing mild pulmonary vascular congestion. 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 Patient is admitted for failure to thrive. 09/23 Patient was seen and examined. No changes in his clinical condition. Echocardiogram shows severe concentric LVH with speckled appearance. No family at bedside. CBC shows hemoglobin of 11.8. BMP shows sodium 134, BUN of 25, creatinine 0.64 with albumin of 3.1. UA negative for nitrite of LE. Per nursing, family interested in Hospice informational visit. 09/24 Patient was seen and examined. No changes in his clinical condition. EEG negative for seizure but shows encephalopathy. Family agreeable for hospice. Pending orthopedic surgery evaluation for possible cortisone injection in the R shoulder for pain control. General: non toxic, no distress, appears at stated age, cachectic Derm: warm, dry Head: atraumatic, normocephalic, symmetric Eyes: EOMI, no lid lag, anicteric sclera Mouth: no lip lesion, mucus membranes moist Cardiovascular: Irregular, no murmur Lungs: CTA bilateral, no rhonchi, no rales , no accessory muscle use Ext: no gross muscle atrophy, no edema, no contractures Neuro: no focal neuro deficits Psych: Alert, oriented x 0 Troponin elevation R shoulder pain Hyponatremia and elevated BUN likely related to dehydration Failure to thrive Resolved: Lactic acidosis Chronic conditions: Severe diastolic CHF, Hypertension, depression, dementia, cardiac amyloidosis, hypothyroidism Based on my assessment of this patient, this patient meets a moderate complexity level of care. Patient has an acute diagnosis of failure to thrive that poses a threat to life or bodily function. He has lost about 10 pounds in the last week as per daug hter. Noted to have elevated troponin of 0.061 and lactic acid of 2.2. Family notes very poor oral intake. Questionable episode of seizure. Potassium and magnesium within normal limits. EEG negative for seizure. Speech therapy recommends NDD2 with 1:1 supervision. PT and OT on board. Troponins are flat. Likely troponin leak. Patient has severe diasolic CHF. Telemetry monitoring ordered. Orthopedic surgery consulted for possible cortisone injection in the R shoulder for pain control. Continue normal saline at 75 mL per hour. Hypertension: Metoprolol 12.5 mg PO QD. Depression: Wellbutrin 150 mg PO QD. Dementia: Memantine 5 mg PO BID. Cardiac amyloidosis: Follows up with Dr. Crawley. Hypothyroidism: Synthroid 25 mcg PO QD. Lovenox for DVT Prophylaxis. Daughter is POA. NO CODE. I have reviewed the results of the following tests: EEG shows encephalopathy and no seizure like activity. Anticipate discharge after Orthopedic surgery evaluation and everything is set up at home. Objective - Vital Signs Vital signs: Vital Signs Temp 97.4 F L 09/24/22 08:00 Pulse 70 09/24/22 12:00 Resp 16 09/24/22 12:00 BP 129/74 09/24/22 12:00 Pulse Ox 97 09/24/22 12:00 FiO2 21 09/24/22 07:53 Intake & Output 09/23/22 09/24/22 09/24/22 18:59 06:59 18:59 Intake Total 150 Balance 150 Weight 81.647 kg Intake: IV 150 Sodium Chloride 0.9% 1, 150 000 ml @ 75 mls/hr IV . [id number] [facility] Rx#:[id number] Other: Voiding Method Incontinent Incontinent Incontinent # Voids 1 1 2 # Bowel Movements 1 1 - Labs CBC & Chem 7: 09/24/22 07:18 09/24/22 07:18 Labs: Abnormal Lab Results - Last 24 Hours (Table) 09/24/22 09/24/22 Range/Units 07:18 07:18 WBC 11.6 H (3.8-10.6) k/uL RBC 3.85 L (4.30-5.90) m/uL Hgb 12.1 L (13.0-17.5) gm/dL Hct 37.2 L (39.0-53.0) % Sodium 134 L (137-145) mmol/L Creatinine 0.51 L (0.66-1.25) mg/dL
[2022-09-24] MEDS ORDERED: methylPREDNISolone ACETATE 40 MG/ML 1 ML VIAL INTRAARTIC STA (13:56)
[2022-09-24] MEDS ORDERED: LIDOCAINE 2% INJ 20 MG/ML (20 ML MDV) MISCELLANE ONE (14:00)
--- NOTE | 2022-09-24 17:44 | P.CNOR ---
History of Present Illness - [facility] Consult date: 09/24/22 History of present illness: This patient is an 87- year old male with a history of dementia, failure to thrive that presented to [facility] emergency department on 09/22/22 for possible seizure like activity and nonspecific complaints. Patient was admitted under the care of internal medicine for failure to thrive. Patient ultimately decided to pursue hospice. Orthopedic surgery is consulted for evaluation of right shoulder pain and possible cortisone injection for pain control. Patient has a history of rotator cuff repair. Cortisone injection is requested by family and admitting team for pain control. Past Medical History Past Medical History: Cancer, Dementia, Hyperlipidemia Additional Past Medical History / Comment(s): bladder cancer History of Any Multi-Drug Resistant Organisms: None Reported Past Surgical History: Joint Replacement, Orthopedic Surgery, Prostate Surgery Additional Past Surgical History / Comment(s): lt hip replacement, rt shoulder surgery Past Anesthesia/Blood Transfusion Reactions: No Reported Reaction Past Psychological History: No Psychological Hx Reported Smoking Status: Former smoker Past Alcohol Use History: Occasional Additional Past Alcohol Use History / Comment(s): smoked 20 years <1ppd quit "long time ago" - Past Family History Mother Family Medical History: No Reported History Medications and Allergies Home Medications Medication Instructions Recorded Confirmed Type Aspirin [Adult Low Dose Aspirin EC] 81 mg PO DAILY 04/14/18 09/22/22 History Omeprazole 20 mg PO AC-BRKFST 04/14/18 09/22/22 History Sertraline HCl [Zoloft] 50 mg PO DAILY 04/14/18 09/22/22 History buPROPion HCL [Wellbutrin XL] 150 mg PO DAILY 04/14/18 09/22/22 History Levothyroxine Sodium [Synthroid] 25 mcg PO DAILY 09/22/22 09/22/22 History Memantine HCl [Memantine HCl ER] 14 mg PO DAILY 09/22/22 09/22/22 History Metoprolol Tartrate [Lopressor] 12.5 mg PO DAILY 09/22/22 09/22/22 History Polymyxin B-Trimeth Sulf Ophth 1 drop BOTH EYES DIRECTED 09/22/22 09/22/22 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 He is alert and answers questions appropriately. Focused examination of the right shoulder is conducted. Standard healed anterior and posterior arthroscopy portals. There are no open wounds. No erythema, ecchymosis, skin discoloration. Diffuse pain with palpation of the shoulder. Motor and sensory function grossly intact of the right upper extremity. Right upper extremity is warm and well perfused. Results Right shoulder x-ray 09/22/22: Prior rotator cuff repair with suture anchors in place. Severe arthritic changes. Superior migration humeral head. - Labs Labs: Abnormal Lab Results - Last 24 Hours (Table) 09/24/22 09/24/22 Range/Units 07:18 07:18 WBC 11.6 H (3.8-10.6) k/uL RBC 3.85 L (4.30-5.90) m/uL Hgb 12.1 L (13.0-17.5) gm/dL Hct 37.2 L (39.0-53.0) % Sodium 134 L (137-145) mmol/L Creatinine 0.51 L (0.66-1.25) mg/dL H & H 09/22/22 09/23/22 09/24/22 Range/Units 13:03 06:27 07:18 Hgb 13.8 11.8 L 12.1 L (13.0-17.5) gm/dL Hct 41.1 35.5 L 37.2 L (39.0-53.0) % Coagulation 09/22/22 Range/Units 14:20 INR 1.1 (<1.2) Result Diagrams: 09/24/22 07:18 09/24/22 07:18 Assessment and Plan Assessment: Right shoulder pain Right shoulder arthritis Plan: - Treatment options were discussed. Patient requests right shoulder cortisone injection today for pain control, which was given. Recommend oral pain medications as needed per admitting team. No restrictions for right shoulder, patient may use as tolerated. Patient may follow-up in the office as an outpat ient as needed for repeat cortisone injections. Procedure: Verbal consent for right shoulder injection obtained. Skin over the posterior shoulder was prepped with Chloraprep. The shoulder was injected with 1mL of depomedrol and 2mLs of lidocaine. The fluid was injected freely. The needle was withdrawn and a band aid applied. The patient tolerated this well.
[2022-09-24 22:22] VITALS: TEMP 97.8
[2022-09-25] MEDS: LEVOTHYROXINE 25 MCG TAB PO SCH (05:59)
[2022-09-25] MEDS: PANTOPRAZOLE 40 MG TABLET PO SCH (05:59)
[2022-09-25] MEDS: SERTRALINE 50 MG TAB PO SCH (08:06)
[2022-09-25] MEDS: buPROPion XL 150 MG TAB.ER.24H PO SCH (08:06)
[2022-09-25] MEDS: METOPROLOL TARTRATE 12.5 MG TAB PO SCH (08:06)
[2022-09-25] MEDS: MEMANTINE 5 MG TAB PO SCH (08:06)
[2022-09-25] MEDS: ASPIRIN 81 MG PO SCH (08:06)
[2022-09-25] MEDS: ENOXAPARIN 40 MG/0.4 ML SYRINGE SQ SCH (08:06)
[2022-09-25 12:07] VITALS: BP 114/61; PULSE 70
--- NOTE | 2022-09-25 15:10 | P.DS ---
Providers Date of admission: 09/22/22 16:07 Expected date of discharge: 09/25/22 Attending physician: Jaime Perrin MD Consults: 09/24/22 10:54 Consult Physician Routine Consulting Provider: Pedro Longoria Consult Reason/Comments: right shoulder pain; possible cortisone injection Do you want consulting provider notified?: Yes Primary care physician: Stated None Hospital Course: Patient is a 87-year-old male with PMH of hypertension, depression, dementia, cardiac amyloidosis, hypothyroidism presents to the ED for seizure-like activity. History is obtained from the daughter at bedside was not present during this episode. Apparently, patient was using the washroom with the aid of his dental equipment mechanic when he started staring off into space and started shaking his ext remities. Unclear whether he had bladder or bowel incontinence. Apparently, he had a similar episode one week ago and was taken to [facility]. He was treated for dehydration and hypomagnesemia. Family was told he did not have a seizure at that time and he was discharged home. Daughter reports that patient has deteriorated over the past 2 months. She estimates that he has lost 10 pounds in the last 6 weeks. Patient has very poor oral intake. With what little intake he does have, usually results in coughing. Daughter also reports that he also seems to have pain in his right shoulder. Family has 24-hour caregiver for their mother and father. He has not been able to ambulate over the past 1-2 weeks. In the ED, he was noted to be tachycardic with heart rate in the 90s. Vital signs were otherwise stable. CBC showed leukocytosis of 11.3. Coagulation panel within normal limits. CMP showed sodium of 133, BUN of 23, glucose 118. Troponin was 0.061. Lactic acid of 2.2. TSH within normal limits and free T4 elevated at 2.37. Further review of EKG showed sinus rhythm with frequent ectopic beats. Brain CT negative for acute finding. Chest x-ray showing mild pulmonary vascular congestion. 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 Patient is admitted for failure to thrive. 09/23 Patient was seen and examined. No changes in his clinical condition. Echocardiogram shows severe concentric LVH with speckled appearance. No family at bedside. CBC shows hemoglobin of 11.8. BMP shows sodium 134, BUN of 25, creatinine 0.64 with albumin of 3.1. UA negative for nitrite of LE. Per nursing, family interested in Hospice informational visit. 09/24 Patient was seen and examined. No changes in his clinical condition. EEG negative for seizure but shows encephalopathy. Family agreeable for hospice. Pending orthopedic surgery evaluation for possible cortisone injection in the R shoulder for pain control. 09/25 Patient was seen and examined. Received cortisone injections to the R shoulder yesterday. Clinical condition is essentially unchanged. Plans on discharge home with hospice today. Pertinent studies include brain CT, chest x-ray, shoulder x-ray, EEG, echocardiogram. General: non toxic, no distress, appears at stated age, cachectic Derm: warm, dry Head: atraumatic, normocephalic, symmetric Eyes: EOMI, no lid lag, anicteric sclera Mouth: no lip lesion, mucus membranes moist Cardiovascular: Irregular, no murmur Lungs: CTA bilateral, no rhonchi, no rales , no accessory muscle use Ext: no gross muscle atrophy, no edema, no contractures Neuro: no focal neuro deficits Psych: Alert, oriented x 0 Discharge Diagnosis: Troponin elevation R shoulder pain Hyponatremia and elevated BUN likely related to dehydration Failure to thrive Resolved: Lactic acidosis Chronic conditions: Severe diastolic CHF, Hypertension, depression, dementia, cardiac amyloidosis, hypothyroidism This complex discharge took 35 minutes to complete. 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 Meglumine [Vyndaqel] 80 mg PO DAILY Discharge Medication List Omeprazole 20 mg PO AC-BRKFST 04/14/18 [History] Sertraline HCl [Zoloft] 50 mg PO DAILY 04/14/18 [History] buPROPion HCL [Wellbutrin XL] 150 mg PO DAILY 04/14/18 [History] Levothyroxine Sodium [Synthroid] 25 mcg PO DAILY 09/22/22 [History] Memantine HCl [Memantine HCl ER] 14 mg PO DAILY 09/22/22 [History] Metoprolol Tartrate [Lopressor] 12.5 mg PO DAILY 09/22/22 [History] Polymyxin B-Trimeth Sulf Ophth [Polytrim Opthalmic] 1 drop BOTH EYES DIRECTED 09/22/22 [History] Follow up Appointment(s)/Referral(s): Hospice,[facility] [NON-STAFF] - 1 Week None,Stated [Primary Care Provider] - 1-2 days Discharge/Stand Alone Forms: Adult Foster Jail List, Assisted Living Facilities, Personal Vascular Physician Discharge Disposition: HOME WITH HOSPICE
--- NOTE | 2022-09-25 15:23 | CDI ---
Documentation Clarification Form Date: 09/25/2022 03:22:32 PM From: Liz Draper RN, CCDS Admit Date: 09/22/2022 04:07:00 PM Patient Name: Golden Bingham Visit Number: [id number] Discharge Date: 09/25/2022 01:40:00 PM ATTENTION: The Clinical Documentation Specialists (CDI) and [facility] Coding Staff appreciate your assistance in clarifying documentation. Please respond to the clarification below the line at the bottom and electronically sign. The CDI & [facility] Coding staff will review the response and follow-up if needed. Please note: Queries are made part of the Legal Health Record. If you have any questions, please contact the author of this message via ITS. Dr. Jaime Perrin Cachectic and failure to thrive is documented in the H/P and subsequent progress notes. Based on this information and the findings below, is there an additional diagnosis that is clinically appropriate for this patient? History/Risk Factors: Atrial Fibrillation, Hypertension, Dementia, Hyperthyroidism Clinical Indicators: 87-year-old male present to ED for seizure-like activity. He was taken to [facility]. He was treated for dehydration and hypomagnesemia. Family reports that patient has deteriorated over the past 2 months. She estimates that he has lost 10 pounds in the last 6 weeks. Patient has very poor oral intake. 09/22 Labs: WBC11.3 Neutrophils 9.4 BUN23 Cr 0.67 Lactic acid2.2 Trop 0.061, 0.066 0.088 09/22 VS 130/76 93 18 98.9 97% RA RD Consult Assessment: 09/25 Current BMI: 24.4 81.647 kg 6ft Insufficient energy intake: Poor intake, Difficulty Swallowing Weight Loss: 10 lbs in 6 weeks Loss of subcutaneous fat: Cachectic Loss of muscle mass: Cachectic, visible fat wasting, buccal fat pads Decreased hand manager of creative services strength: family reports weakness Treatment: Dietary Consult: Yes Supplements: Enlive TID, Monitor PO, Supplement intake Is there an additional diagnosis that is clinically appropriate for this patient? [ x ] Mild Protein-Calorie Malnutrition [ ] Moderate Protein-Calorie Malnutrition [ ] Severe Protein-Calorie Malnutrition [ ] No additional diagnosis/Not clinically significant [ ] Other condition, please specify [ ] Unable to Determine (Template Last Revised: July 2020) MTDD
== END 2022-09-25 13:40 | disposition still patient (30) | DRG 641 ==
LOC: EC 12:44 → 3SCARD 16:07
PROVIDERS: ADMIT Family Medicine; ATTEND Family Medicine
DX: E44.1 Mild protein-calorie malnutrition (principal); G93.40 Encephalopathy, unspecified; E85.4 Organ-limited amyloidosis; E87.20 Acidosis, unspecified; I43 Cardiomyopathy in diseases classified elsewhere; E87.1 Hypo-osmolality and hyponatremia; F03.93 Unspecified dementia, unspecified severity, with mood disturbance; I50.32 Chronic diastolic (congestive) heart failure; R56.9 Unspecified convulsions; I11.0 Hypertensive heart disease with heart failure; E03.9 Hypothyroidism, unspecified; I48.91 Unspecified atrial fibrillation; E86.0 Dehydration; I45.10 Unspecified right bundle-branch block; E78.5 Hyperlipidemia, unspecified; G89.29 Other chronic pain; M54.9 Dorsalgia, unspecified; M25.511 Pain in right shoulder; I49.3 Ventricular premature depolarization; R00.0 Tachycardia, unspecified; R77.8 Other specified abnormalities of plasma proteins; M19.011 Primary osteoarthritis, right shoulder; Z96.642 Presence of left artificial hip joint; Z85.51 Personal history of malignant neoplasm of bladder; Z79.899 Other long term (current) drug therapy; Z79.890 Hormone replacement therapy; Z79.82 Long term (current) use of aspirin; Z87.891 Personal history of nicotine dependence; Z51.5 Encounter for palliative care; Z74.01 Bed confinement status; Z91.81 History of falling; Z28.310 Unvaccinated for COVID-19; Z68.24 Body mass index [BMI] 24.0-24.9, adult
CPT/HCPCS: 36415; 70450; 71046; 80048; 80053; 81003; 83605; 83735; 84100; 84439; 84443; 84481; 84484; 85025; 85027; 85610; 85730; 93005; 93306; 94760; 95816; 99285